=== PATIENT | male | born 1970 | race Two or more races ===

== ENCOUNTER 2025-06-22 20:49 | Emergency (ER) | payer MEDICAID, OTHER ==
[~2025-06-22] VITALS: Ht 167.6 cm; Wt 136.1 kg
[2025-06-22 21:10] VITALS: BP 146/86; PULSE 96; RESP 16; TEMP 98; O2SAT 94
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
== END 2025-06-22 21:18 | disposition left against medical advice (07) ==
LOC: ER 20:49 → EDBD 20:49 → ER 21:18
DX: Z04.1 Encounter for examination and observation following transport accident (principal); V89.2XXA Person injured in unspecified motor-vehicle accident, traffic, initial encounter; Y92.410 Unspecified street and highway as the place of occurrence of the external cause; Y93.89 Activity, other specified; Y99.8 Other external cause status